=== PATIENT | male | born 1980 | race Two or more races ===

== ENCOUNTER 2017-09-07 09:16 | Outpatient (CLI) | payer OTHER | END 2017-09-07 09:17 | disposition home or self-care (01) | LOC: SC 09:16 | PROVIDERS: ATTEND Internal Medicine Pulmonary Disease | DX: G47.30 Sleep apnea, unspecified (principal); G47.10 Hypersomnia, unspecified; R06.83 Snoring; E66.9 Obesity, unspecified; Z68.31 Body mass index [BMI] 31.0-31.9, adult | CPT/HCPCS: 99203; 99212 ==

== ENCOUNTER 2017-10-08 20:36 | Outpatient (CLI) | payer OTHER | END 2017-10-08 20:37 | disposition home or self-care (01) | LOC: SC 20:36 | PROVIDERS: ATTEND Internal Medicine Pulmonary Disease | DX: G47.33 Obstructive sleep apnea (adult) (pediatric) (principal) | CPT/HCPCS: 95810 ==

== ENCOUNTER 2017-12-09 09:08 | Outpatient (CLI) | payer OTHER | END 2017-12-09 09:09 | disposition home or self-care (01) | LOC: SC 09:08 | PROVIDERS: ATTEND Nurse Practitioner Family | DX: G47.33 Obstructive sleep apnea (adult) (pediatric) (principal) | CPT/HCPCS: 99212; 99214 ==

== ENCOUNTER 2018-02-22 14:11 | Outpatient (CLI) | payer OTHER | END 2018-02-22 14:12 | disposition home or self-care (01) | LOC: SC 14:11 | PROVIDERS: ATTEND Internal Medicine Pulmonary Disease | DX: G47.33 Obstructive sleep apnea (adult) (pediatric) (principal) | CPT/HCPCS: 99212; 99213 ==

== ENCOUNTER 2021-12-05 14:31 | Outpatient (CLI) | payer OTHER ==
[2021-12-05 15:19] VITALS: BP 142/80
--- NOTE | 2021-12-05 15:19 | SLEEP CARE CONSULTATION ---
Information from patient questionnaire entered by Vibha Peterson. I have reviewed and concur with the information entered by Vibha Peterson. This document represents the service I personally performed and the decisions made by me, Key Sparks ARNP. History of Present Illness Service Date and Time: 12/05/2021 1431 Reason for Visit: sleep apnea on CPAP therapy (very mild obstructive sleep apnea), Re-establish care Chief Complaint: reports: Unrefreshed sleep, Fatigue, Other (UPDATE SUPPLIES ) Date of Onset: 5 YEARS Usual bedtime: 10PM Time it takes to fall asleep: ABOUT 20 MINUTES Snores at night: Yes Observed to quit breathing while asleep: Yes Sleeps alone due to snoring: No Number of times waking at night: 2 Reasons for waking at night: reports: Choking, Gasping for air Toss, Turn, or Twitch while sleeping: No Recalls having dreams: Yes Usually gets out of bed at: 410AM Feels refreshed in the morning: No Morning headache: Yes Sleepy or fatigued during the day: Yes Ever fallen asleep while driving: No Takes day naps: No Dreams during day naps: No Prior sleep studies: Yes Year and Where: 2017 [facility] Type of Sleep Study: Polysomnography Additional HPI information: DIPAK WALLS was previously diagnosed to have very mild, AHI 4.6/RDI 5.5, obstructive sleep apnea-hypopnea syndrome and comes in today to re-est ablish care for CPAP therapy. - Parasomnia Symptoms Ever been unable to move upon waking from sleep: No Walks in sleep: No Talks in sleep: Yes Ever acted out dreams in sleep: No Ever felt weak in the knees when startled or emotional: No Bothered by creepy, crawly, restless sensations in legs: No Problems with memory or concentration: No CPAP Compliance Data - Data Reviewed with Patient Average duration of nightly device use: 5 hours 11 minutes Compliance rate %: 62.8 (154/180 days used) Current pressure setting (cmH2O): 4-10 Average residual AHI: 3.1 Central apnea: 0.1 Obstructive apnea: 0.5 Hypopnea: 2.5 (RERA 0.4) Average large leak: 1 L/min Compliance data discussion: Patient has a Dreamstation that is on the recall that was last updated 01/2018. He is getting supplies from [employer]. He is using a gel nasal pillows mask, [employer]. Subjective Missed days of use due to: reports: travel (goes camping a lot) Patient concerns: denies: aerophagia, mask discomfort, air blowing in eyes, mask leak noise, condensation in mask/hose, nasal congestion, dry mouth, nose, thr oat, epistaxis Observed to snore while using device: No Current pressure setting perceived as: comfortable On therapy, patient: reports: sleeping better, awakening more refreshed, being more awake and alert during the day, more rested overall. 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 Patient is and lives in [place]. Have you smoked in the past 12 months: No Cigarettes per day (20/pack): 10 Years of smokin Quit date: 2000 Smoking Pack Years: 1.5 Alcohol use: Yes Alcohol amount and frequency: 2 DRINKS TWICE A MONTH Caffeine use: Yes Caffeine amount and frequency: 3 CUPS OF COFFEE DAILY Family History Family history of sleep disordered breathing: No Allergies and Home Medications Drug allergies reviewed: Yes (NKDA) Home medication list reviewed: Yes (no daily medications) Allergy and home medication list: Allergies No Known Drug Allergies Allergy (Verified 01/06/18 14:56) Review of Systems Cardiovascular: denies: high blood pressure Respiratory: denies: shortness of breath Gastrointestinal: reports: heartburn Neurological: reports: headaches Psychiatric: denies: anxiety, depression Ear/Nose/Throat: reports: sinus problems. denies: tonsillectomy, wisdom teeth removed Musculoskeletal: reports: joint pain Physical Exam Vital signs obtained and entered by: JOLANTA HENDRICKS Blood Pressure: 142/80 (LEFT ARM ) Cuff size: regular Heart Rate: 67 O2 Saturation: 97 Height: 5 ft 8 in Weight: 222 lb Body Mass Index: 33.7 BMI Classification: Obese Neck circumference: 19 (INCHES) Heart: regular rate and rhythm Lungs: clear bilaterally Impression and Plan 1. Obstructive Sleep Apnea-Hypopnea Syndrome, very mild, with fair treatment compliance and good apnea control. On CPAP therapy, the patient has better sleep quality and is more rested overall. Patient comes in today because he would like to update his recalled DreamStation. This machine he received in the January 2018. He was encouraged by his DME to come in for a prescription to update his device. He does have who will update recalled device. A prescription will be made and patient knows that he will have to come in for compliance visit about a month after getting his new device. Patient's apnea severity and rationale for treatment to reduce apnea, improve sleep quality and reduce cardiovascular and cerebrovascular events was reviewed. 2. Obesity, unspecified. Currently patients BMI is 33.7. Obesity increases the risk of apnea, CPAP pressure requirements and overall health risks especially cardiovascular and diabetes. Thus patient is advised to lose weight. * Continue auto CPAP pressure at 4-10 cmH2O * Update device * Update supplies * Notify me if snoring with mask or feeling that the pressure is too much or too little * Attempt to lose weight * Call this office if any problems using CPAP * Return for follow up one month after obtaining new device, or sooner if concerns arise Counseling Topics: Spare mask, Weight loss health impact Visit Type: In Office Time Spent with Patient (minutes): 27 Provider Statement: I spent 100% of the Face to Face Visit with the patient with greater than 50% spent counseling the patient and coordination of care.
== END 2021-12-05 14:32 | disposition home or self-care (01) ==
LOC: SC 14:31
PROVIDERS: ATTEND Nurse Practitioner Family
DX: G47.33 Obstructive sleep apnea (adult) (pediatric) (principal); E66.9 Obesity, unspecified; Z68.33 Body mass index [BMI] 33.0-33.9, adult; Z87.891 Personal history of nicotine dependence
CPT/HCPCS: 99202; 99212

== ENCOUNTER 2022-02-13 15:56 | Outpatient (CLI) | payer OTHER ==
[2022-02-13 16:25] VITALS: BP 130/70
--- NOTE | 2022-02-13 16:25 | SLEEP CARE CONSULTATION ---
Information from patient questionnaire entered by Kamar Montes MA. I have reviewed and concur with the information entered by Kamar Montes MA. This document represents the service I personally performed and the decisions made by , Key Sparks ARNP. History of Present Illness Service Date and Time: 02/13/2022 1556 Previous diagnosis: Mild (very), Obstructive Sleep Apnea-Hypopnea Syndrome AHI: 4.6 (with RDI 5.5) Reason for follow up: first compliance after device update Equipment type: CPAP (ResMed Airsense 11) Equipment obtained from: [employer] ([employer]) Mask style: Nasal pillows Mask brand: Respironics (Dreamwear) Backup mask available: Yes (old mask) Prior sleep studies: Yes Year and Where: 2017 [facility] Type of Sleep Study: Polysomnography HPI additional information: DIPAK WALLS was diagnosed to have very mild, AHI 4.6/RDI 5.5, obstructive sleep apnea-hypopnea syndrome and returned today for CPAP therapy first compliance after updating device follow-up. Sleep Study - Results Type of Sleep Study: Polysomnography Prior sleep studies: Yes Year and Where: 2017 [facility] CPAP Compliance Data - Data Reviewed with Patient Average duration of nightly device use: 5 hrs Compliance rate %: 60 (36/40 days used) Current pressure setting (cmH2O): 4-10 Average residual AHI: 1.0 Central apnea: 0.1 Obstructive apnea: 0.6 Subjective Missed days of use due to: reports: illness (had a cold, too congested to use nasal mask), travel (used other CPAP) Patient concerns: denies: aerophagia, mask discomfort, air blowing in eyes, mask leak noise, condensation in mask/hose, nasal congestion, dry mouth, nose, throat, epistaxis Observed to snore while using device: No Current pressure setting perceived as: comfortable On therapy, patient: reports: sleeping better, awakening more refreshed, being more awake and alert during the day, more rested overall. denies: drowsiness while driving Initial [place] Sleepiness Scale score: 12 (12/04/21) Current [place] Sleepiness Scale score: 9 Allergies and Home Medications Drug allergies reviewed: Yes (NKDA) Home medication list reviewed: Yes (Lena) Review of Systems Review of systems same as previous: Yes (no changes) Physical Exam Vital signs obtained and entered by: KAMAR Turcios Blood Pressure: 130/70 Cuff size: long Heart Rate: 108 O2 Saturation: 97 Height: 5 ft 8 in Weight: 225 lb 6.4 oz Body Mass Index: 34.2 BMI Classification: Obese Impression and Plan 1. Obstructive Sleep Apnea-Hypopnea Syndrome, very mild, with fair treatment compliance and good apnea control. On CPAP therapy, the patient has better sleep quality and is more rested overall. Patient likes his new air sense 11. He states he did get a replacement device from [employer] so he now has a backup. Patient has significant improvement of their sleep apnea and are satisfied with current CPAP therapy. Patient denies problems with oral dryness, nasal congestion, epistaxis, skin irritation or aerophagia. Patient compliant is slightly under but he states he is working on it and he had a time where he was sick and could not breathe through his nose. Patient's apnea severity and rationale for treatment to reduce apnea, improve sleep quality and reduce cardiovascular and cerebrovascular events was reviewed. 2. Obesity, unspecified. Currently patients BMI is 34.2. Obesity increases the risk of apnea, CPAP pressure requirements and overall health risks especially cardiovascular and diabetes. Thus patient is advised to lose weight. * Continue auto CPAP pressure at 4-10 cmH2O * Notify me if snoring with mask or feeling that the pressure is too much or too little * Attempt to lose weight * Call this office if any problems using CPAP * Return for follow up in 1 year, or sooner if concerns arise Counseling Topics: Spare mask, Weight loss health impact Visit Type: In Office Time Spent with Patient (minutes): 20 Provider Statement: I spent 100% of the Face to Face Visit with the patient with greater than 50% spent counseling the patient and coordination of care.
== END 2022-02-13 15:57 | disposition home or self-care (01) ==
LOC: SC 15:56
PROVIDERS: ATTEND Nurse Practitioner Family
DX: G47.33 Obstructive sleep apnea (adult) (pediatric) (principal); E66.9 Obesity, unspecified; Z68.34 Body mass index [BMI] 34.0-34.9, adult
CPT/HCPCS: 99212; 99213

== ENCOUNTER 2023-05-20 14:34 | Outpatient (CLI) | payer OTHER ==
--- NOTE | 2023-05-20 14:46 | Sleep Patient Instructions ---
Sleep Center Visit Summary - Patient Visit Information Reason for Visit: Annual follow-up - Patient Instructions Additional Instructions: You will continue with CPAP therapy with pressure set at 4-10 cmH2O. A supply prescription will be updated with your DME. We encourage you to continue to try to lose weight. Please follow up with the sleep care office in 1 year. - Clinic Information Contact: [facility] [address] [place] [address] [email or web address] T: [phone]
--- NOTE | 2023-05-20 14:48 | SLEEP CARE CONSULTATION ---
Information from patient questionnaire entered by Juhi Gorman. I have reviewed and concur with the information entered by Juhi Gorman. This document represents the service I personally performed and the decisions made by me, Key Sparks ARNP. History of Present Illness Service Date and Time: 05/20/2023 1434 Previous diagnosis: Mild (very), Obstructive Sleep Apnea-Hypopnea Syndrome AHI: 4.6 (with RDI 5.5) Reason for follow up: annual (LAST SEEN 02/2022) Equipment type: CPAP (ResMed Airsense 11; s/u 12/2021) Equipment obtained from: [employer] ([employer] supplies) Mask style: Nasal pillows Mask brand: Respironics ([employer]) Backup mask available: Yes Last cushion change: last week Prior sleep studies: Yes Year and Where: 2017 [facility] Type of Sleep Study: Polysomnography HPI additional information: DIPAK W[place]S was diagnosed to have mild (very), AHI 4.6 with RDI 5.5, obstructive sleep apnea-hypopnea syndrome and returned today for CPAP therapy annual follow-up. Sleep Study - Results Type of Sleep Study: Polysomnography Prior sleep studies: Yes Year and Where: 2017 [facility] CPAP Compliance Data - Data Reviewed with Patient Average duration of nightly device use: 6 HRS 0 MINS Compliance rate %: 76 (05/20/22-05/19/23; 311/365 days used) Current pressure setting (cmH2O): 4-10 Average residual AHI: 0.9 Central apnea: 0.1 Obstructive apnea: 0.5 Hypopnea: 0.3 Average large leak: 0 L/min Compliance data discussion: He has two machines, one he uses when he goes camping. Subjective Missed days of use due to: reports: travel (camping, uses other machine) Patient concerns: denies: aerophagia, mask discomfort, air blowing in eyes, mask leak noise, condensation in mask/hose, nasal congestion, dry mouth, nose, throat, epistaxis Observed to snore while using device: No Current pressure setting perceived as: comfortable On therapy, patient: reports: sleeping better, awakening more refreshed, being more awake and alert during the day, more rested overall. denies: drowsiness while driving Initial [place] Sleepiness Scale score: 12 (12/04/21) Current [place] Sleepiness Scale score: 9 (05/20/23) Allergies and Home Medications Known drug allergies: No Drug allergies reviewed: Yes Home medication list reviewed: Yes (Sidenafil, Taladafil, Naproxen) Allergy and home medication list: Allergies No Known Drug Allergies Allergy (Verified 05/20/23 08:32) Review of Systems Review of systems same as previous: No (ENDOSCOPY 2022) Physical Exam Vital signs obtained and entered by: JUHI Jones MA Blood Pressure: 143/87 (LEFT ARM) Cuff size: regular Heart Rate: 61 O2 Saturation: 98 Height: 5 ft 8 in Weight: 224 lb 12.8 oz Body Mass Index: 34.2 BMI Classification: Obese Impression and Plan 1. Obstructive Sleep Apnea-Hypopnea Syndrome, very mild, with good treatment compliance and good apnea control. On CPAP therapy, the patient has better sleep quality and is more rested overall. Patient has significant improvement of their sleep apnea and is satisfied with current CPAP therapy. Patient denies problems with oral dryness, nasal congestion, epistaxis, skin irritation or aerophagia. Patient's apnea severity and rationale for treatment to reduce apnea, improve sleep quality and reduce cardiovascular and cerebrovascular events was reviewed. 2. Obesity, unspecified. Currently patients BMI is 34.2. Obesity increases the risk of apnea, CPAP pressure requirements and overall health risks especially cardiovascular and diabetes. Thus patient is advised to lose weight. * Continue auto CPAP pressure at 4-10 cmH2O * Update supply prescription * Notify me if snoring with mask or feeling that the pressure is too much or too little * Attempt to lose weight * Call this office if any problems using CPAP * Return for follow up in 12 months, or sooner if concerns arise Counseling Topics: Spare mask, Weight loss health impact Prescriptions: Device supplies Follow up with Sleep Care in: 1 year Visit Type: In Office Time Spent with Patient (minutes): 13 Provider Statement: I spent 100% of the Face to Face Visit with the patient with greater than 50% spent counseling the patient and coordination of care.
[2023-05-20 14:51] VITALS: BP 143/87; O2SAT 98
== END 2023-05-20 14:35 | disposition home or self-care (01) ==
LOC: SC 14:34
PROVIDERS: ATTEND Nurse Practitioner Family
DX: G47.33 Obstructive sleep apnea (adult) (pediatric) (principal); E66.9 Obesity, unspecified; Z68.34 Body mass index [BMI] 34.0-34.9, adult
CPT/HCPCS: 99212